=== PATIENT | female | born 1950 ===

== ENCOUNTER 2024-02-11 15:24 | Outpatient (REF) | payer MEDICARE, MEDICAID, SELFPAY ==
[2024-02-11 17:49] LABS: Anion Gap 12.1 mmol/L (3-11); BUN 33 mg/dL (7-18); CO2 25.9 mmol/L (21.0-32.0); CREATININE 1.3 mg/dL (0.55-1.02); Calcium 8.6 mg/dL (8.5-10.1); Chloride 99 mmol/L (98-107); Estimated GFR 43.69 (mL/min/1.73m2); Glucose 427 mg/dL (74-106); Magnesium 2.1 mg/dL (1.8-2.4); Potassium 4.7 mmol/L (3.5-5.1); Sodium 137 mmol/L (136-145)
== END 2024-02-11 15:25 | disposition home or self-care (01) ==
LOC: LBN 15:24
PROVIDERS: Visit Provider Family Medicine
DX: I10 Essential (primary) hypertension (principal)
CPT/HCPCS: 80048; 83735

== ENCOUNTER 2024-02-15 10:13 | Outpatient (REF) | payer MEDICARE, MEDICAID, SELFPAY ==
[2024-02-15 10:31] LABS: Abs Immature Grans 0.06 10^3/uL (0.0-0.06); Absolute Basophil Count 0.06 10^3/uL (0.0-0.2); Absolute Eosinophil Count 0.33 10^3/uL (0.0-0.7); Absolute Monocyte Count 0.91 10^3/uL (0.1-0.8); Basophils % 0.6 %; Eosinophils % 3.1 %; HCT 37.4 % (36.0-46.0); HGB 11.8 g/dL (11.2-15.7); Immature Grans % 0.6 %; Lymphocytes % 17.7 %; MCHC 31.6 % (32.0-36.0); MCV 92 fL (80-95); MPV 9.4 fL (8.0-11.0); Monocytes % 8.5 %; Neutrophils % 69.5 %; Platelet Count 485 10^3/uL (130-400); RBC 4.07 10^6/uL (3.93-5.22); RDW 13.2 % (11.7-14.6); RDW-SD 43.7 fL; WBC 10.76 10^3/uL (4.4-10.8)
== END 2024-02-15 10:14 | disposition home or self-care (01) ==
LOC: NCHCN 10:13
PROVIDERS: Visit Provider Family Medicine
DX: I10 Essential (primary) hypertension (principal)
CPT/HCPCS: 85025

== ENCOUNTER 2024-02-26 21:53 | Emergency (ER) | payer MEDICARE, MEDICAID, SELFPAY ==
[2024-02-26 21:53] VITALS: BP 173/91; PULSE 99; RESP 18; TEMP 36.1; O2SAT 99
--- NOTE | 2024-02-26 22:15 | RT.EKG_ITS ---
APPROVED REPORT Exam: Resting ECG Reason for Exam: med clearance Patient Location: E HR:94 bpm ECG Measurements Heart Rate 94 AXIS NC 167 P 46 QRSd 74 QRS 34 QT 359 T 62 QTc 450 Conclusion Sinus rhythm...normal P axis, V-rate 60- [address] segment or T wave abnormalities to suggest occlusive [place]
[2024-02-26 23:39] LABS: Abs Immature Grans 0.04 10^3/uL (0.0-0.06); Absolute Basophil Count 0.04 10^3/uL (0.0-0.2); Absolute Eosinophil Count 0.25 10^3/uL (0.0-0.7); Absolute Monocyte Count 0.74 10^3/uL (0.1-0.8); Basophils % 0.5 %; Eosinophils % 3.3 %; Immature Grans % 0.5 %; Lymphocytes % 19.6 %; MCHC 31.6 % (32.0-36.0); MCV 92 fL (80-95); MPV 9.5 fL (8.0-11.0); Monocytes % 9.6 %; Neutrophils % 66.5 %; Platelet Count 324 10^3/uL (130-400); RBC 4.14 10^6/uL (3.93-5.22); RDW 13.5 % (11.7-14.6); RDW-SD 45.4 fL; WBC 7.67 10^3/uL (4.4-10.8)
[2024-02-26 23:56] LABS: ETHANOL BLOOD < 3.0 mg/dL (<10)
[2024-02-26 23:57] LABS: ALT 42 U/L (14-59); AST 28 U/L (15-37); Albumin 2.7 g/dL (3.4-5.0); Alkaline Phosphatase 184 U/L (46-116); Anion Gap 7.2 mmol/L (3-11); BUN 22 mg/dL (7-18); Bilirubin, Total 0.47 mg/dL (0.2-1.0); CO2 30.8 mmol/L (21.0-32.0); CREATININE 1.1 mg/dL (0.55-1.02); Calcium 8.8 mg/dL (8.5-10.1); Chloride 102 mmol/L (98-107); Estimated GFR 53.39 (mL/min/1.73m2); Glucose 262 mg/dL (74-106); Magnesium 1.8 mg/dL (1.8-2.4); Potassium 4.3 mmol/L (3.5-5.1); Sodium 140 mmol/L (136-145); Total Protein 6.4 g/dL (6.4-8.2)
[2024-02-27] LABS: Salicylate < 2.8 mg/dL (<2.8)
[2024-02-27 00:01] LABS: Acetaminophen < 2 ug/mL (10-30)
[2024-02-27 00:11] LABS: Bilirubin Negative (Negative); Blood Negative (Negative); Clarity Clear (Clear); Glucose 500 mg/dL (Negative); Ketones Negative (Negative); Leukocyte Esterase Trace (Negative); Nitrite Negative (Negative); Specific Gravity 1.015 (1.005-1.025); Urobilinogen 0.2 mg/dL (Up to 0.2)
--- NOTE | 2024-02-27 00:11 | ED.GENADUL_ITS ---
Discharge Plan Discharge Details Chief Complaint: PsychEval Primary Care Provider: Unknown,Unknown ED Provider: Benita Antonio Home Meds and New Rx's Prescriptions: No Action Glucerna Liquid 237 ml PO BID acetaminophen 325 mg tablet 650 mg PO Q6H PRN aspirin 81 mg capsule 81 mg PO DAILY atorvastatin 80 mg tablet 80 mg PO DAILY brimonidine 0.1 % drops 1 drp ophthalmic (eye) BID calcium carbonate 500 mg calcium (1,250 mg) tablet,chewable 1,000 mg PO DAILY clopidogrel 75 mg tablet 75 mg PO DAILY cyanocobalamin (vitamin B-12) 1,000 mcg tablet 1,000 mcg PO DAILY docusate sodium [Col-Rite] 100 mg capsule 100 mg PO DAILY dorzolamide-timolol 22.3-6.8 mg/mL drops 1 drp ophthalmic (eye) BID dapagliflozin propanediol [Farxiga] 5 mg tablet 5 mg PO DAILY furosemide 20 mg tablet 20 mg PO DAILY insulin glargine-yfgn 100 unit/mL solution 18 unit subcut BID latanoprost 0.005 % drops 1 drp ophthalmic (eye) QPM magnesium oxide 400 mg magnesium tablet 400 mg PO BID magnesium hydroxide [Milk of Magnesia] 400 mg/5 mL suspension 30 ml PO DAILY PRN polyethylene glycol 3350 [Miralax] 17 gram/dose powder 17 g PO DAILY nitroglycerin 0.4 mg tablet, sublingual 0.4 mg sublingual Q5M PRN Rx Instructions: do not exceed 3 doses per episode nortriptyline 25 mg capsule 25 mg PO DAILY pantoprazole [Protonix] 40 mg tablet,delayed release (DR/EC) 40 mg PO BID bromfenac [Prolensa] 0.07 % drops 1 drp ophthalmic (eye) DAILY Rx Instructions: administer on day before procedure/surgery HPI General Mode of arrival: EMS . Date/Time Provider Initiated Documentation: 02/26/24 21:54 . Limitations to Documentation: no limitations . Information obtained by: patient, EMS and old records reviewed . HPI Narrative: 73yo F with hx T2DM, CHF, HTN, depression, left humerus fracture, presenting via [facility] from [facility] for [facility] ideation. Per EMS, patient made suicidal statements to her daughter who contacted the facility, patient then also made suicidal patients to facility staff. Patient states to me that she does want to and has a plan; declines to share the plan. Would not use guns or knives as she does not have access to those. Reports a history of multiple prior suicide attempts via overdose, as well as prior inpatient psychiatric treatment. Denies any attempt recently. Also reports has had left shoulder pain slowly improving since arm fracture, currently no pain. Otherwise in her usual state of health. Denies fevers, chills, rash, nas[place], vomiting, abdominal pain, dysuria, hematuria, numbness, tingling, weakness, chest pain, shortness of breath, or other concerns. Related Data Home Medications ?Medication ?Instructions ?Recorded ?Confirmed acetaminophen 325 mg tablet 650 mg PO Q6H PRN 02/26/24 02/26/24 aspirin 81 mg capsule 81 mg PO DAILY 02/26/24 02/26/24 atorvastatin 80 mg tablet 80 mg PO DAILY 02/26/24 02/26/24 brimonidine 0.1 % eye drops 1 drp ophthalmic (eye) BID 02/26/24 02/26/24 bromfenac 0.07 % eye drops 1 drp ophthalmic (eye) DAILY 02/26/24 02/26/24 (Prolensa) calcium carbonate 1,000 mg PO DAILY 02/26/24 02/26/24 clopidogrel 75 mg tablet 75 mg PO DAILY 02/26/24 02/26/24 cyanocobalamin (vitamin B-12) 1,000 mcg PO DAILY 02/26/24 02/26/24 1,000 mcg tablet dapagliflozin propanediol 5 mg 5 mg PO DAILY 02/26/24 02/26/24 tablet (Farxiga) docusate sodium 100 mg capsule 100 mg PO DAILY 02/26/24 02/26/24 (Col-Rite) dorzolamide 22.3 mg-timolol 6.8 1 drp ophthalmic (eye) BID 02/26/24 02/26/24 mg/mL eye drops furosemide 20 mg tablet 20 mg PO DAILY 02/26/24 02/26/24 insulin glargine-yfgn 100 unit/mL 18 unit subcut BID 02/26/24 02/26/24 subcutaneous solution latanoprost 0.005 % eye drops 1 drp ophthalmic (eye) QPM 02/26/24 02/26/24 magnesium hydroxide 400 mg/5 mL 30 ml PO DAILY PRN 02/26/24 02/26/24 oral suspension (Milk of Magnesia) magnesium oxide 400 mg PO BID 02/26/24 02/26/24 nitroglycerin 0.4 mg sublingual 0.4 mg sublingual Q5M PRN 02/26/24 02/26/24 tablet nortriptyline 25 mg capsule 25 mg PO DAILY 02/26/24 02/26/24 nut.tx.gluc.intol,lac-free,soy 237 ml PO BID 02/26/24 02/26/24 (Glucerna oral liquid) pantoprazole 40 mg tablet,delayed 40 mg PO BID 02/26/24 02/26/24 release (Protonix) polyethylene glycol 3350 17 17 g PO DAILY 02/26/24 02/26/24 gram/dose oral powder (Miralax) Allergies Allergy/AdvReac Type Severity Reaction Status Date / Time doxycycline Allergy Unknown Unknown Verified 02/26/24 22:14 ketorolac (From Toradol) Allergy Unknown Unknown Verified 02/26/24 22:14 latex Allergy Unknown Unknown Verified 02/26/24 22:14 metformin Allergy Unknown Unknown Verified 02/26/24 22:14 methocarbamol Allergy Unknown Unknown Verified 02/26/24 22:14 naproxen Allergy Unknown Unknown Verified 02/26/24 22:14 rofecoxib Allergy Unknown Unknown Verified 02/26/24 22:14 tetracycline Allergy Unknown Unknown Verified 02/26/24 22:14 General Stated Complaint: PsychEval TREY: 2 Review of Systems Narrative: see HPI Exam Narrative Exam Narrative: General: Alert, well nourished, in no acute distress. Head: Normocephalic, atraumatic Neck: Trachea midline, ?Neck supple. ENT: ?MMM.? No oropharygeal lesions or exudate. Cardiac: ?RRR, no murmurs appreciated Resp: No respiratory distress. CTAB. Abd: ?Soft, non-distended, nontender : ?No suprapubic tenderness. Extremities: ?Left arm in sling. Equal radial pulses. No peripheral edema. Neurologic: GCS 15. ? Moves all extremities freely against gravity Psych: Mildly agitated. Well groomed.? Mood crappy, affect congruent.? Speech with normal volume, rate, rythym and tone. Linear and goal directed.? + SI with plan which she will not disclose. Denies HI/AH/VH. ? Does not appear to be responding to internal stimuli Course Vital Signs Vital signs: Vital Signs Temperature 36.1 C L 02/26/24 21:53 Pulse 99 H 02/26/24 21:53 Respiratory Rate 18 02/26/24 21:53 Blood Pressure 173/91 H 02/26/24 21:53 Pulse Oximetry 99 02/26/24 21:53 Temperature 36.1 C L 02/26/24 21:53 Temperature Source Temporal Artery Scan 02/26/24 21:53 Pulse 99 H 02/26/24 21:53 Respiratory Rate 18 02/26/24 21:53 Respiratory Effort Normal, Non-Labored 02/26/24 22:00 Blood Pressure 173/91 H 02/26/24 21:53 Blood Pressure Position Supine 02/26/24 21:53 Pulse Oximetry 99 02/26/24 21:53 Oxygen Delivery Method Room Air 02/26/24 21:53 Oxygen Flow Rate 0 02/26/24 21:53 Pain Level 0 02/26/24 21:53 Lab/Test Results Lab/Test Results: Laboratory Tests Range/Units 02/26/24 23:35 WBC (4.4-10.8) 10^3/uL 7.67 RBC (3.93-5.22) 10^6/uL 4.14 Hgb (11.2-15.7) g/dL 12.0 Hct (36.0-46.0) % 38.0 MCV (80-95) fL 92 MCH (27.0-33.0) pg 29.0 MCHC (32.0-36.0) % 31.6 L RDW (11.7-14.6) % 13.5 Plt Count (130-400) 10^3/uL 324 MPV (8.0-11.0) fL 9.5 Immature Gran % % 0.5 Neutrophils % % 66.5 Lymphocytes % % 19.6 Monocytes % % 9.6 Eosinophils % % 3.3 Basophils % % 0.5 Nucleated RBC % (0.0-0.3) % 0.0 Absolute Neutrophils (1.2-6.7) 10^3/uL 5.10 Absolute Lymphocytes (1.2-3.4) 10^3/uL 1.50 Absolute Monocytes (0.1-0.8) 10^3/uL 0.74 Absolute Eosinophils (0.0-0.7) 10^3/uL 0.25 Absolute Basophils (0.0-0.2) 10^3/uL 0.04 Sodium (136-145) mmol/L 140 Potassium (3.5-5.1) mmol/L 4.3 Chloride (98-107) mmol/L 102 Carbon Dioxide (21.0-32.0) mmol/L 30.8 Anion Gap (3-11) mmol/L 7.2 BUN (7-18) mg/dL 22 H Creatinine (0.55-1.02) mg/dL 1.1 H Est GFR (CKD-EPI 2020) (mL/min/1.73m2) 53.39 Glucose (74-106) mg/dL 262 H Calcium (8.5-10.1) mg/dL 8.8 Magnesium (1.8-2.4) mg/dL 1.8 Total Bilirubin (0.2-1.0) mg/dL 0.47 AST (15-37) U/L 28 ALT (14-59) U/L 42 Alkaline Phosphatase (46-116) U/L 184 H Total Protein (6.4-8.2) g/dL 6.4 Albumin (3.4-5.0) g/dL 2.7 L Salicylates (<2.8) mg/dL < 2.8 Acetaminophen (10-30) ug/mL < 2 Ethyl Alcohol (<10) mg/dL < 3.0 Medical Decision Making 73yo F with hx T2DM, CHF, HTN, depression, left humerus fracture, presenting [facility] from [facility] for [facility] ideation. Reportedly made suicidal statements to her daughter as well as facility staff. Here also reports SI, refuses to disclose plan. Given age, will evaluate with screening EKG and labs. Initially refused labs, after much discussion does agree to straight stick for screening bloodwork. Hypertensive and slightly tachycardiac on arrival, afebrile. No infectious symptoms. Daughter Marlene Nam @ [phone] called department; patient states she does not want anyone to speak to her daughter or discuss her medical condition. EKG NSR, appropriate intervals, no ST segment or T wave abnormalities to suggest occlusive [place]. Labs reviewed as below, CBC reassuring with no leukocytosis or anemia, CMP wtih elevated blood glucose at 262 and no other actionable abnormalities, serum tox negative, UA with trace leuks and 10-20 WBCs, neg nitrate; in the absence of urinary symptoms would not treat equivocal UA- will send for culture. [facility] contacted and attempted to speak with patient; she states she is tired and refuses to talk with them. Plan to attempt again in the morning. Home meds ordered. Will be signed out to oncoming physician, plan to followup [facility] reccs. Lab Data Lab results reviewed: Yes I reviewed the patient's lab results. Labs: 02/27/24 00:00 Urine - Reflex from Ua Urine Culture - Pending Laboratory Tests Range/Units 02/26/24 02/27/24 23:35 00:00 WBC (4.4-10.8) 10^3/uL 7.67 RBC (3.93-5.22) 10^6/uL 4.14 Hgb (11.2-15.7) g/dL 12.0 Hct (36.0-46.0) % 38.0 MCV (80-95) fL 92 MCH (27.0-33.0) pg 29.0 MCHC (32.0-36.0) % 31.6 L RDW (11.7-14.6) % 13.5 Plt Count (130-400) 10^3/uL 324 MPV (8.0-11.0) fL 9.5 Immature Gran % % 0.5 Neutrophils % % 66.5 Lymphocytes % % 19.6 Monocytes % % 9.6 Eosinophils % % 3.3 Basophils % % 0.5 Nucleated RBC % (0.0-0.3) % 0.0 Absolute Neutrophils (1.2-6.7) 10^3/uL 5.10 Absolute Lymphocytes (1.2-3.4) 10^3/uL 1.50 Absolute Monocytes (0.1-0.8) 10^3/uL 0.74 Absolute Eosinophils (0.0-0.7) 10^3/uL 0.25 Absolute Basophils (0.0-0.2) 10^3/uL 0.04 Sodium (136-145) mmol/L 140 Potassium (3.5-5.1) mmol/L 4.3 Chloride (98-107) mmol/L 102 Carbon Dioxide (21.0-32.0) mmol/L 30.8 Anion Gap (3-11) mmol/L 7.2 BUN (7-18) mg/dL 22 H Creatinine (0.55-1.02) mg/dL 1.1 H Est GFR (CKD-EPI 2020) (mL/min/1.73m2) 53.39 Glucose (74-106) mg/dL 262 H Calcium (8.5-10.1) mg/dL 8.8 Magnesium (1.8-2.4) mg/dL 1.8 Total Bilirubin (0.2-1.0) mg/dL 0.47 AST (15-37) U/L 28 ALT (14-59) U/L 42 Alkaline Phosphatase (46-116) U/L 184 H Total Protein (6.4-8.2) g/dL 6.4 Albumin (3.4-5.0) g/dL 2.7 L Urine Color (Yellow) Yellow Urine Clarity (Clear) Clear Urine pH (5-8) 6.0 Ur Specific [place] (1.005-1.025) 1.015 Urine Protein (Neg-Trace) mg/dL Trace Urine Ketones (Negative) mg/dL Negative Urine Blood (Negative) Negative Urine Nitrite (Negative) Negative Urine Bilirubin (Negative) Negative Urine Urobilinogen (Up to 0.2) mg/dL 0.2 Ur Leukocyte Esterase (Negative) Trace H Urine RBC (0-2) HPF Negative Urine WBC (0-5) HPF 10-20 H Ur Epithelial Cells (Negative) HPF Few Urine Crystals (Negative) HPF Negative Urine Bacteria (Negative) HPF Few Urine Casts (Negative) LPF Negative Urine Mucus (Negative) Negative Ur Culture Indicated? Yes Urine Glucose (Negative) mg/dL 500 H Salicylates (<2.8) mg/dL < 2.8 Acetaminophen (10-30) ug/mL < 2 Ethyl Alcohol (<10) mg/dL < 3.0 Quality:SDOH Health Related Social Needs: No Data to Display PFSH Social History Smoking/Tobacco Use Status: Current every day Smoking risk assessment performed?: Yes Alcohol Intake: never Drug use: Never Substance use type: does not use Housing: correction Do you feel safe at home: Yes Do you feel safe in your relationship?: Yes
[2024-02-27 00:19] LABS: Bacteria Few HPF (Negative); C & S Indicated? Yes; Casts Negative LPF (Negative); Crystals Negative HPF (Negative); Epithelial Cells Few HPF (Negative); Mucus Negative (Negative); RBC Negative HPF (0-2)
[2024-02-27 06:45] VITALS: BP 136/73; PULSE 72; RESP 18; TEMP 36.3; O2SAT 96
[2024-02-27] MEDS: Atorvastatin 40 MG TAB 80 MG PO (09:00)
[2024-02-27] MEDS: Furosemide 20 MG TAB PO (09:00)
[2024-02-27] MEDS: Clopidogrel 75 MG TAB PO (09:01)
[2024-02-27] MEDS: Magnesium Oxide 400 MG TAB PO (09:01)
[2024-02-27] MEDS: Pantoprazole 40 MG TABCR PO (09:01)
[2024-02-27] MEDS: Aspirin E.C. 81 MG TABEC PO (09:21)
[2024-02-27] MEDS: Calcium Carbonate 1.25 GM TAB 2.5 GM PO (09:21)
[2024-02-27] MEDS: Cyanocobalamin 500 MCG TAB 1000 MCG PO (09:22)
[2024-02-27] MEDS: Polyethylene Glycol 3350 17 GM PACKET PO (09:23)
[2024-02-27] MEDS: Insulin Glargine 300 UNITS/3 ML PEN 18 UNITS SC (09:25)
[2024-02-27] MEDS: Docusate Sodium 100 MG CAP PO (09:26)
--- NOTE | 2024-02-27 10:53 | ED.PROG_ITS ---
Date of service: 02/27/24 Time of Service: 10:53 Medical Decision Making Patient's been calm and cooperative throughout the morning here. Denies any SI to me. Seen by mental health and cleared to return back to the assisted with safety plan. Quality:SDOH Health Related Social Needs: No Data to Display Sign Out Sign Out Data: Sign Out Comment: 73yo F hx depression, prior SA via overdose, prior inpatient psych treatment, [facility] with SI with plan which she will not disclose. Able to contract for safety while here but states she might act on her SI at home. Medically cleared, home meds ordered, pending [facility] eval. Pt does not want her daughter involved in her medical care. Last updated by Benita Antonio MD at 02/27/24 07:06 Discharge Plan Disposition Patient Disposition: Alf Facility(SNF) Discharge Details Clinical Impression: Depression Primary Care Provider: Unknown,Unknown ED Provider: Piero Astorga Home Meds and New Rx's Prescriptions: Continued Glucerna Liquid 237 ml PO BID acetaminophen 325 mg tablet 650 mg PO Q6H PRN aspirin 81 mg capsule 81 mg PO DAILY atorvastatin 80 mg tablet 80 mg PO DAILY brimonidine 0.1 % drops 1 drp ophthalmic (eye) BID calcium carbonate 500 mg calcium (1,250 mg) tablet,chewable 1,000 mg PO DAILY clopidogrel 75 mg tablet 75 mg PO DAILY cyanocobalamin (vitamin B-12) 1,000 mcg tablet 1,000 mcg PO DAILY docusate sodium [Col-Rite] 100 mg capsule 100 mg PO DAILY dorzolamide-timolol 22.3-6.8 mg/mL drops 1 drp ophthalmic (eye) BID dapagliflozin propanediol [Farxiga] 5 mg tablet 5 mg PO DAILY furosemide 20 mg tablet 20 mg PO DAILY insulin glargine-yfgn 100 unit/mL solution 18 unit subcut BID latanoprost 0.005 % drops 1 drp ophthalmic (eye) QPM magnesium oxide 400 mg magnesium tablet 400 mg PO BID magnesium hydroxide [Milk of Magnesia] 400 mg/5 mL suspension 30 ml PO DAILY PRN polyethylene glycol 3350 [Miralax] 17 gram/dose powder 17 g PO DAILY nitroglycerin 0.4 mg tablet, sublingual 0.4 mg sublingual Q5M PRN Rx Instructions: do not exceed 3 doses per episode nortriptyline 25 mg capsule 25 mg PO DAILY pantoprazole [Protonix] 40 mg tablet,delayed release (DR/EC) 40 mg PO BID bromfenac [Prolensa] 0.07 % drops 1 drp ophthalmic (eye) DAILY Rx Instructions: administer on day before procedure/surgery Discharge Instructions Additional Instructions: Follow-up with your primary care provider within 1 to 2 weeks If you feel more ill or feel you are suffering from emergent medical process return to the emergency department for reevaluation
--- NOTE | 2024-02-28 08:57 | NUR.NOTE ---
Access chart to reconcile EKG orders to EKG's in [facility]. Nursing Note:
== END 2024-02-27 11:44 | disposition skilled nursing facility (03) ==
PROVIDERS: Student in an Organized Health Care Education/Training Program; Emergency Provider Emergency Medicine
DX: F32.A Depression, unspecified (principal); R45.851 Suicidal ideations
CPT/HCPCS: 00123; 36416; 80053; 82962; 93005; 99285; 80320; 80329; 81003; 81015; 83735; 85025; 87086; 93010; 99283; J1815; J3490

== ENCOUNTER 2024-04-22 14:59 | Outpatient (REF) | payer MEDICARE, MEDICAID, SELFPAY ==
[2024-04-22 14:53] LABS: Abs Immature Grans 0.04 10^3/uL (0.0-0.06); Absolute Basophil Count 0.04 10^3/uL (0.0-0.2); Absolute Eosinophil Count 0.18 10^3/uL (0.0-0.7); Absolute Lymphocyte Count 1.37 10^3/uL (1.2-3.4); Absolute Monocyte Count 0.58 10^3/uL (0.1-0.8); Absolute Neutrophil Count 7.73 10^3/uL (1.2-6.7); Basophils % 0.4 %; Eosinophils % 1.8 %; HCT 45.6 % (36.0-46.0); HGB 14.4 g/dL (11.2-15.7); Immature Grans % 0.4 %; Lymphocytes % 13.8 %; MCH 28.3 pg (27.0-33.0); MCHC 31.6 % (32.0-36.0); MCV 90 fL (80-95); Monocytes % 5.8 %; Neutrophils % 77.8 %; RBC 5.09 10^6/uL (3.93-5.22); RDW 12.9 % (11.7-14.6); RDW-SD 42.3 fL; WBC 9.94 10^3/uL (4.4-10.8)
[2024-04-22 14:57] LABS: Anion Gap 8.6 mmol/L (3-11); BUN 35 mg/dL (7-18); CO2 32.4 mmol/L (21.0-32.0); Calcium 9.3 mg/dL (8.5-10.1); Chloride 102 mmol/L (98-107); Estimated GFR 59.86 (mL/min/1.73m2); Glucose 116 mg/dL (74-106); Magnesium 1.9 mg/dL (1.8-2.4); Potassium 4.2 mmol/L (3.5-5.1); Sodium 143 mmol/L (136-145)
[2024-04-22 15:02] LABS: Diff Comment PLT Morph Reviewed; RBC Morphology Normal
[2024-04-22 15:46] LABS: Hemoglobin A1C 7.1 % (<5.7)
== END 2024-04-22 15:00 | disposition home or self-care (01) ==
LOC: LBN 14:59
PROVIDERS: Visit Provider Family Medicine
DX: E11.9 Type 2 diabetes mellitus without complications (principal)
CPT/HCPCS: 80048; 83036; 83735; 85025

== ENCOUNTER 2024-05-14 17:22 | Outpatient (REF) | payer MEDICARE, MEDICAID, SELFPAY ==
[2024-05-14 18:23] LABS: Bilirubin Negative (Negative); Blood Negative (Negative); Clarity Sl Cloudy (Clear); Glucose 500 mg/dL (Negative); Ketones Negative (Negative); Leukocyte Esterase Small (Negative); Nitrite Negative (Negative); Specific Gravity 1.015 (1.005-1.025); Urobilinogen 0.2 mg/dL (Up to 0.2); pH 5.5 (5-8)
[2024-05-14 18:35] LABS: Bacteria Moderate HPF (Negative); C & S Indicated? C&S Done As Ordered; Casts Negative LPF (Negative); Crystals Negative HPF (Negative); Epithelial Cells Few HPF (Negative); Mucus Negative (Negative); Other Cells Few Yeast (Negative); RBC Negative HPF (0-2); WBC >50 HPF (0-5)
== END 2024-05-14 17:23 | disposition home or self-care (01) ==
LOC: LBN 17:22
DX: N17.9 Acute kidney failure, unspecified (principal)
CPT/HCPCS: 87077; 81003; 81015; 87086; 87186